=== PATIENT | male | born 1985 | race Caucasian/White ===

== ENCOUNTER → 2022-02-19 | Outpatient (CLI) | payer OTHER | LOC: COL.RAD 10:21 | DX: K44.9 Diaphragmatic hernia without obstruction or gangrene (principal); K21.9 Gastro-esophageal reflux disease without esophagitis ==

== ENCOUNTER 2022-05-07 05:08 | Day surgery (SDC) | payer OTHER ==
[2022-05-07] VITALS (11 sets, daily range): BP systolic 110–140; BP diastolic 54–77; PULSE 50–77; TEMP 97.8–99.2
[~2022-05-07] VITALS: Wt 86.5 kg
[2022-05-07] MEDS ORDERED: PRILOSEC 20MG20 MG PO (06:02)
--- NOTE | 2022-05-07 10:10 | NUR ---
Pt up from [place]. He is alert and oriented with minimal to no pain complaints. Pt does have some crepitus to his upper chest. Lap sites to abd are well approximated with no drainage. Pts is at bedside. Educated them on post op care/ plan of care
--- NOTE | 2022-05-07 11:41 | NUR ---
Pt doing well since arriving to the floor post op. He has tolerated ice water and pudding. Educated on how to order food and educated him on the diet he is on. Lap sites remain well approximated with no drainage. remains at bedside. PT did get up to the restroom and voided without difficulty. Reports pain was tolerable.
--- NOTE | 2022-05-07 12:51 | NUR ---
Charmaine: unknown Situation: supervisor wet end stopped by room on rounds Background: Pt was resting and content Assessment: no needs right now. pt appreciated the visit Recommendation: supervisor wet end will follow up as needed
--- NOTE | 2022-05-07 19:35 | NUR ---
RECEIVED CHANGE OF SHIFT REPORT FROM DAY SHIFT RN.
[2022-05-08 03:55] VITALS: BP 115/76; PULSE 74; TEMP 98.3
--- NOTE | 2022-05-08 06:55 | NUR ---
CHANGE OF SHIFT REPORT GIVEN TO DAY SHIFT RNs, SUELLEN.
[2022-05-08 07:27] VITALS: BP 123/75; PULSE 60; TEMP 98.1
--- NOTE | 2022-05-08 07:43 | NUR ---
Received report from the assistant shift supervisor nurse.
--- NOTE | 2022-05-08 09:22 | NUR ---
Patient laying in bed watching TV. Alert and oriented x4. Abdominal incision x6 dry and intact. Abdomen soft , bowel sound hyperactive. Patient states he has been passing out gas. INT on left hand dry and intact. No redness noted. Patient rated abdominal pain 3/10 and pain medication not needed at this time. Patient is able to ambulate to the bathroom. Will continue to monitor patient.
--- NOTE | 2022-05-08 10:29 | NUR ---
Initial visit; Patient thanked [employer] Salesperson for looking in on him and wishing him well. Patient appeared uncomfortable but mannerly. [employer] Salesperson offered God's blessings.
--- NOTE | 2022-05-08 11:29 | NUR ---
smokehouse worker met with patient to complete intake and discuss discharge plan. Patient's Noy ([phone]) present at bedside. 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 He is fully independent with his ADL's and has no DME needs. He utilizes [facility] for PCP needs and [facility] for [facility] quiller tender medications and [facility] in [place] for short term medications. He states that he did have a DPOA-HC at one point but that it is "". He is planning on returning home once medically ready. Discharge plan: Home with spouse
[2022-05-08 11:51] VITALS: BP 125/76; PULSE 56; TEMP 97.7
--- NOTE | 2022-05-08 15:32 | NUR ---
Patient reports of abdominal pain, describes it as gas pain. Patient rated pain level 6/10. [place] 5mg administered. Spouse at the bedside. Call jackson within reach and will continue to monitor patient.
[2022-05-08 15:56] VITALS: BP 127/83; PULSE 58; TEMP 98.3
[2022-05-08] MEDS ORDERED: NORCO 325 MG-51 TAB PO (16:23)
--- NOTE | 2022-05-08 17:07 | NUR ---
DISCHARGE INSTRUCTIONS REVIEWED WITH PT AND SPOUSE. QUESTIONS SOLICITED AND ANSWERED. PT LEFT UNIT AMBULTORY WITH STAFF.
== END 2022-05-08 17:09 | disposition home or self-care (01) ==
LOC: SURG 05:08 → SDCO 05:08 → SURG 10:00 → SDCO 05-08 17:09
DX: K21.9 Gastro-esophageal reflux disease without esophagitis (principal); K44.9 Diaphragmatic hernia without obstruction or gangrene; Z79.899 Other long term (current) drug therapy
CPT/HCPCS: OP; J0690; J1100; J1200; J1885; J2405; J2704; J3010; J7120